=== PATIENT | female | born 1955 | race Two or more races ===

== ENCOUNTER 2020-08-31 08:18 | Outpatient (CLI) | payer OTHER | END 2020-08-31 08:22 | disposition home or self-care (01) | LOC: LAB 08:18 | PROVIDERS: ATTEND Orthopaedic Surgery | DX: M85.88 Other specified disorders of bone density and structure, other site (principal); E55.9 Vitamin D deficiency, unspecified; E21.2 Other hyperparathyroidism; E88.89 Other specified metabolic disorders; M81.8 Other osteoporosis without current pathological fracture; E56.1 Deficiency of vitamin K ==

== ENCOUNTER 2020-09-08 10:14 | Outpatient (CLI) | payer OTHER | END 2020-09-08 10:23 | disposition home or self-care (01) | LOC: NUCLEAR 10:14 | PROVIDERS: ATTEND Orthopaedic Surgery | DX: M81.0 Age-related osteoporosis without current pathological fracture (principal) ==

== ENCOUNTER 2020-09-21 11:13 | Outpatient (CLI) | payer OTHER | END 2020-09-21 11:19 | disposition home or self-care (01) | LOC: MRI 11:13 | PROVIDERS: ATTEND Orthopaedic Surgery | DX: M94.8X6 Other specified disorders of cartilage, lower leg (principal); M17.12 Unilateral primary osteoarthritis, left knee; M23.92 Unspecified internal derangement of left knee | CPT/HCPCS: 73721 ==

== ENCOUNTER 2020-10-21 08:58 | Outpatient (CLI) | payer OTHER | END 2020-10-21 09:05 | disposition home or self-care (01) | LOC: LAB 08:58 | PROVIDERS: ATTEND Internal Medicine Hematology & Oncology | DX: D50.8 Other iron deficiency anemias (principal); R79.89 Other specified abnormal findings of blood chemistry; I10 Essential (primary) hypertension; R74.02 Elevation of levels of lactic acid dehydrogenase [LDH]; K76.89 Other specified diseases of liver; D51.1 Vitamin B12 deficiency anemia due to selective vitamin B12 malabsorption with proteinuria; D51.0 Vitamin B12 deficiency anemia due to intrinsic factor deficiency; E03.8 Other specified hypothyroidism; E06.3 Autoimmune thyroiditis; R97.0 Elevated carcinoembryonic antigen [CEA]; R97.8 Other abnormal tumor markers; E11.9 Type 2 diabetes mellitus without complications; M81.0 Age-related osteoporosis without current pathological fracture; F33.8 Other recurrent depressive disorders; E78.2 Mixed hyperlipidemia ==

== ENCOUNTER 2020-12-15 10:15 | Outpatient (CLI) | payer OTHER | END 2020-12-15 10:20 | disposition home or self-care (01) | LOC: RAD 10:15 | PROVIDERS: ATTEND Orthopaedic Surgery | DX: M25.561 Pain in right knee (principal); M25.521 Pain in right elbow; M25.522 Pain in left elbow ==

== ENCOUNTER 2021-06-01 13:39 | Outpatient (CLI) | payer OTHER | END 2021-06-01 13:46 | disposition home or self-care (01) | LOC: RAD 13:39 | PROVIDERS: ATTEND Orthopaedic Surgery | DX: M79.671 Pain in right foot (principal); M79.672 Pain in left foot ==

== ENCOUNTER → 2021-09-22 08:37 | Outpatient (CLI) | payer OTHER | END | disposition home or self-care (01) | LOC: LAB 08:37 | PROVIDERS: ATTEND Orthopaedic Surgery | DX: M25.571 Pain in right ankle and joints of right foot (principal); M25.572 Pain in left ankle and joints of left foot; M13.872 Other specified arthritis, left ankle and foot; M13.871 Other specified arthritis, right ankle and foot ==

== ENCOUNTER 2022-01-19 09:26 | Outpatient (CLI) | payer OTHER | END 2022-01-19 12:21 | disposition home or self-care (01) | LOC: LAB 09:26 | PROVIDERS: ATTEND Orthopaedic Surgery | DX: E55.9 Vitamin D deficiency, unspecified (principal); M85.9 Disorder of bone density and structure, unspecified; E21.3 Hyperparathyroidism, unspecified; E88.9 Metabolic disorder, unspecified; M81.8 Other osteoporosis without current pathological fracture; E56.1 Deficiency of vitamin K ==

== ENCOUNTER 2022-01-19 10:38 | Outpatient (CLI) | payer OTHER | END 2022-01-19 10:47 | disposition home or self-care (01) | LOC: RAD 10:38 | PROVIDERS: ATTEND Orthopaedic Surgery | DX: M25.562 Pain in left knee (principal) ==

== ENCOUNTER 2022-04-03 09:26 | Outpatient (CLI) | payer OTHER | END 2022-04-03 09:30 | disposition home or self-care (01) | LOC: SONOGRAMA 09:26 | PROVIDERS: ATTEND Pathology Anatomic Pathology & Clinical Pathology | DX: E04.1 Nontoxic single thyroid nodule (principal) ==

== ENCOUNTER 2022-05-04 11:53 | Outpatient (CLI) | payer OTHER | END 2022-05-04 12:01 | disposition home or self-care (01) | LOC: RAD 11:53 | PROVIDERS: ATTEND Orthopaedic Surgery | DX: M25.561 Pain in right knee (principal) ==